=== PATIENT | female | born 1995 | race African-American/Black ===

== ENCOUNTER 2019-06-01 14:49 | Emergency (ER) | payer SELFPAY ==
[~2019-06-01] VITALS: Ht 157.5 cm; Wt 111.8 kg
[2019-06-01 14:58] VITALS: BP 138/88; Ht 157.5 cm; Wt 111.8 kg
[2019-06-01 17:01] LABS: APPEARANCE CLEAR (CLEAR); BILIRUBIN NEGATIVE (NEGATIVE); COLOR YELLOW (YELLOW); GLUCOSE NEGATIVE (NEGATIVE); KETONE NEGATIVE (NEGATIVE); NITRITE NEGATIVE (NEGATIVE); PROTEIN NEGATIVE (NEGATIVE); SPECIFIC GRAVITY 1.015 (1.005-1.020); UROBILINOGEN NORMAL (NORMAL)
[2019-06-01] MEDS ORDERED: ZPAK PO (17:06)
== END 2019-06-01 17:33 | disposition home or self-care (01) ==
LOC: D.ER 14:49
PROVIDERS: Emergency Medicine
DX: O26.90 Pregnancy related conditions, unspecified, unspecified trimester (principal); J32.9 Chronic sinusitis, unspecified; Z32.00 Encounter for pregnancy test, result unknown; R05 Cough; R11.0 Nausea; R53.1 Weakness

== ENCOUNTER 2020-01-15 09:33 | Inpatient (IN) | payer MEDICAID ==
[~2020-01-15] VITALS: Ht 157.5 cm; Wt 114.8 kg
--- NOTE | ~2020-01-15 | OP ---
PATIENT NAME: MADINA PATINO MEDICAL RECORD: [id number] :93 LOCATION:[facility]73 ADMISSION DATE:01/15/20 SURGEON: KEY WHITE DO DATE OF OPERATION: 01/15/2020 PREOPERATIVE DIAGNOSIS: Scheduled repeat . POSTOPERATIVE DIAGNOSIS: Scheduled repeat . PRIMARY SURGEON: Key White DO ANESTHESIA: Spinal. PROCEDURE: Repeat low transverse section via Pfannenstiel incision. FINDINGS: Female infant, weight 6 pounds 12 ounces, Apgars 9 and 9, delivered at 1406. Meconium stained amniotic fluid. Bladder adhesed to the mid anterior uterus. Normal appearing bilateral fallopian tubes and bilateral ovaries. SPECIMENS: Placenta and cord blood. ESTIMATED BLOOD LOSS: 900 cc. IV FLUIDS: 2 liters. URINE OUTPUT: 75 cc of concentrated urine. COMPLICATIONS: None. CONDITION: Stable. PROCEDURE: The risks, benefits, alternatives and indications of the procedure were discussed with the patient. She voiced understanding of the procedure and signed a consent. DESCRIPTION OF PROCEDURE: She was taken to the OR where spinal anesthesia was administered and found to be adequate. She was placed in the dorsal supine position with a leftward tilt. She was prepped and draped in the normal sterile fashion. A Pfannenstiel skin incision was made with a scalpel and carried down to the underlying layer of the fascia with the Bovie. The fascia was incised with the midline and extended laterally. The inferior aspect of the fascial incision was grasped with Monae clamps and the rectus muscles dissected off sharply. Attention was then turned to the superior aspect of the fascial incision and the rectus muscle was dissected off in a similar fashion. The rectus muscle was in the midline down to the level of the peritoneum. The peritoneum was identified and noted to be free of adherent bowel and entered bluntly. The peritoneum was further with gentle traction. The bladder was noted to be adhesed to the mid anterior uterus and so a bladder flap was created with Metzenbaum scissors and pickups. The bladder blade was inserted and the uterus was incised in a transverse fashion in the lower uterine segment. The incision was extended with cephalad caudad traction. The infant's head was brought to the incision and the delivered without difficulty. Mouth and nose were suctioned. Cord was clamped and cut. The was handed off to awaiting pediatric staff. The placenta was manually removed. The uterus was exteriorized and a moist lap was used to assure complete removal of placenta OPERATIVE REPORT [id number] MADINA PATINO. The hysterotomy was closed with 0 Vicryl in a running-locked fashion with good hemostasis. Uterus, tubes, and ovaries were noted to be normal. The posterior cul-de-sac was irrigated with warm sterile water and the uterus, tubes and ovaries were returned back to the abdominal cavity and moist laparotomy sponges to assure complete removal of blood clots and fluid from the abdominal cavity. The hysterotomy was reinspected and noted to be hemostatic. The rectus muscle was closed with 2-0 Monocryl in a running fashion with good hemostasis. The fascial incision was closed with 0 Vicryl in a running fashion with good hemostasis. The subcutaneous fat was closed with 2-0 plain in a running fashion with good hemostasis. The skin was closed with 3-0 Monocryl and Dermabond covering. All needle, lap, sponge, and instrument counts were correct times 2. The patient tolerated the procedure well and she was taken to recovery room in stable condition. TRANSINT:[id number] Voice Confirmation ID: [id number] DOCUMENT ID: [id number] KEY WHITE DO CC: [id number] DICTATION DATE: 01/15/201506 HOSPICE PLAN ADMINISTRATOR: 01/16/20 0029 [facility] [address] [id number]
[~2020-01-15 09:33] MED LIST: ZPAK PO
[2020-01-15 10:07] VITALS: BP 126/64; Ht 157.5 cm; Wt 114.8 kg
[2020-01-15 10:53] LABS: HEMATOCRIT 31.7 % (36.0-48.0); HEMOGLOBIN 10.6 g/dL (12-16); MCH 28.5 pg (26.0-34.0); MCHC 33.4 g/dL (31.0-37.0); MCV 85.2 fL (80.0-100.0); MEAN PLATELET VOLUME 9.9 fL (7.4-10.4); RBC 3.72 10x6/uL (4.00-5.40); RDW 15.9 % (11.5-14.5); WBC 6.9 10x3/uL (4.8-10.8)
--- NOTE | 2020-01-15 15:14 | NUR ---
BABY GIRL @ 1401 PLACENTA @ 140
--- NOTE | 2020-01-15 15:19 | NUR ---
PALPATED FUNDUS FIRM AND MIDLINE
[2020-01-15 15:33] VITALS: BP 133/60
--- NOTE | 2020-01-15 15:33 | NUR ---
REC'D BACK TO ROOM 1273 FROM PACU. AA&OX3. DENIES PAIN AT THIS TIME. VSS. FUNDUS FIRM, MIDLINE AND U2 WITH MODERATE AMT RUBRA LOCHIA, NO CLOTS NOTED. DRSG TO LOWER TRANSVERSE ABD INCISION CLEAN, DRY, AND INTACT, NO DRAINAGE NOTED. PERICARE DONE, TOWELS AND CHUX CHANGED. PERIPADS PLACED. 80 MLS CONCENTRATED MICHAEL COLORED URINE NOTED IN VALENZUELA AND EMPTIED. BREATH SOUNDS CLEAR AND EQUAL BILATERALLY. BOWELS SOUNDS PRESENT AND HYPOACTIVE X4 QUADRANTS. SCD'S TO BLE. R WRIST PIV INFUSING WITHOUT DIFFICULTY, NO S/S OF INFILTRATION NOTED. UPDATED ON STATUS. DENIES NAUSEA. ICE CHIPS PROVIDED. ICE PACK PLACED PER ORDER AND PT REQUEST. BED IN LOW POSITION WITH SRUP X2. CALL LIGHT AND PHONE WITHIN REACH. WILL CONTINUE TO MONITOR.
--- NOTE | 2020-01-15 15:53 | NUR ---
TO PT'S ROOM, MORPHINE BUCKLE SORTER SET UP AND EXPLAINED TO PT. PT PROVIDED WITH BUCKLE SORTER BUTTON. PT ABLE TO MOVE AND FEEL BOTH LEGS, PT EXCITED, STATES "I CAN MOVE MY LEGS!". VALENZUELA CATH CONTINUES TO DRAIN DARK YELLOW URINE. FUNDUS FIRM, U/1, SMALL RUBRA LOCHIA, NO CLOTS EXPELLED. ABDOMEN CONTINUES TO PALPATE SOFT, PT DENIES NAUSEA/SOB/OR DIFFICULTY BREATHING. PT SERVED LARGE GLASS OF ICE WATER. SRUP X2, CALL LIGHT AND PHONE WITHIN REACH. SEE EMAR FOR ALL MEDS ADM BY THIS RN.
--- NOTE | 2020-01-15 17:15 | NUR ---
DIETARY SERVES CLEAR LIQUID DIET, PT DENIES ALL NEEDS AT THIS TIME. CONTINUES TO DENY SOB, NAUSEA, OR DIFFICULTY BREATHING. SRUP X2, CL/PHONE WITHIN REACH.
--- NOTE | 2020-01-15 18:34 | NUR ---
VSS. FUNDUS FIRM, MIDLINE AND U1 WITH MODERATE AMT RUBRA LOCHIA, SMALL QUARTER SIZED CLOT EXPRESSED WITH MASSAGE. PERIPADS, TOWELS, AND CHUX CHANGED. 45 MLS MICHAEL COLORED URINE NOTED TO UROMETER, WILL NOTIFY MD. DENIES PAIN. LOCAL ARE[employer] SYSTEMS ADMINSTRATOR INFUSING. ICE WATER PROVIDED AND ENCOURAGED PO FLUID INTAKE. BED IN LOW POSITION WITH SRUP X2. CALL LIGHT AND PHONE WITHIN REACH. WILL CONTINUE TO MONITOR.
--- NOTE | 2020-01-15 18:41 | NUR ---
DR. RIVERA PAGED TO REPORT OUTPUT.
--- NOTE | 2020-01-15 18:44 | NUR ---
CALL BACK TO UNIT REC'D FROM DR. RIVERA. URINE OUTPUT REPORTED. ORDERS REC'D TO CONTINUE TO MONITOR AND REPORT URINE OUTPUT LESS THAN 25 MLS/HR TO .
--- NOTE | 2020-01-15 19:07 | NUR ---
BEDSIDE REPORT COMPLETED AT THIS TIME
[2020-01-15 19:12] VITALS: BP 125/61
--- NOTE | 2020-01-15 19:12 | NUR ---
PATIENT SITTING UP IN BED HOLDING , SIGNIFICANT OTHER AT BEDSIDE. PT DENIES PAIN, VALENZUELA CATHETER DRAINING TO GRAVITY-10ML MICHAEL URINE NOTED IN CHAMBER. SHIFT ASSESSMENT COMPLETED, SEE FLOWSHEET. INCENTIVE SPIROMETER AND TEACHING PROVIDED. BED REMAINS LOCKED IN LOW POSITION, SIDERAILS UPX2, CALL ARGUELLO AND TRAY TABLE IN REACH. WILL CONTINUE TO MONITOR.
--- NOTE | 2020-01-15 19:12 | NUR ---
PERICARE PERFORMED, CLEAN PAD PLACED. BLEEDING SMALL RUBRA, FUNDUS FIRM ML/U-1.
--- NOTE | 2020-01-15 20:30 | NUR ---
BLANKETS PROVIDED PER PTS REQUEST. NO FURTHER NEEDS IDENTIFIED
--- NOTE | 2020-01-15 21:08 | NUR ---
TORADOL 30MG SLOW IVP ADMINISTERED AT THIS TIME PER MD ORDERS
--- NOTE | 2020-01-15 21:12 | NUR ---
VALENZUELA CATHETER UROMETER EMPTIED OF 30ML MICHAEL URINE. PATIENT HOLDING TO CHANGE HER DIAPER. SIGNFICANT OTHER REMAINS AT BEDSIDE FOR SUPPORT AND ASSISTANCE. NO FURTHER NEEDS IDENTIFIED. WILL CONTINUE TO MONITOR.
--- NOTE | 2020-01-15 22:15 | NUR ---
PERICARE PERFORMED, CLEAN PADS PLACED. SMALL RUBRA WITH QUARTER SIZED CLOT NOTED. PT DENIES NEEDS AT THIS TIME. BED REMAINS LOCKED IN LOW POSITION, SIDERAILS UPX2, CALL ARGUELLO AND TRAY TABLE IN REACH.
--- NOTE | 2020-01-15 23:13 | NUR ---
INFANT TO NURSERY VIA OPEN CRIB PER PARENTS REQUEST. PATIENT DENIES NEEDS AT THIS TIME, STATES THAT SHE IS GOING TO GO TO SLEEP. PTS SIGNIFICANT OTHER IS LEAVING TO GO HOME BECAUSE THE BED IS SO UNCOMFORTABLE HERE.
--- NOTE | 2020-01-16 00:12 | NUR ---
DR RIVERA CALLED AND GIVEN UPDATE ON 10 ML MICHAEL URINE OUTPUT, NEW ORDERS NOTED FOR 500ML IV BOLUS OF NS.
[2020-01-16 00:20] VITALS: BP 118/59
--- NOTE | 2020-01-16 00:20 | NUR ---
NORMAL SALINE IV BOLUS STARTED AT THIS TIME PER MD ORDERS. PERICARE PERFORMED WITH 5 DIME SIZED CLOTS EXPRESSED. CLEAN PADS PLACED. PT USING PHYSICAL CHEMIST FOR PAIN CONTROL AT THIS TIME. NO FURTHER NEEDS IDENTIFIED. WILL CONTINUE TO MONITOR
--- NOTE | 2020-01-16 03:05 | NUR ---
PT SITTING UP IN BED HOLDING INFANT, PERICARE PERFORMED, SMALL RUBRA WITH NO CLOTS, CLEAN PADS PLACED. VALENZUELA CATHETER UROMETER EPMTIED OF 40ML DARK MICHAEL URINE. PT ENCOURAGED TO DRINK WATER. NO NEEDS IDENTTIFIED AT THIS TIME. WILL CONTINUE TO MONITOR
--- NOTE | 2020-01-16 04:15 | NUR ---
PATIENT CONTINUES TO BREASTFEED, DENIES NEEDS. VALENZUELA CATHETER NOTED TO HAVE 22ML MICHAEL URINE.
--- NOTE | 2020-01-16 05:15 | NUR ---
PATIENT CONTINUES TO BREASTFEED, PT TEARFUL. PATIENT STATES THAT THE BABY IS JUST USING HER A PACIFIER. TAKEN, AND WRAPPED IN BLANKET AND GIVEN A PACIFIER. NURSERY NURSE TO ROOM TO TAKE INFANT BACK TO NURSERY. URINE OUTPUT NOTED TO BE 20ML DARK MICHAEL URINE IN UROMETER. FUNDUS FIRM,U-2, NO BLADDER DISTENTION NOTED. PT HAS NO COMPLAINT OF FEELING LIKE SHE HAS TO URINATE. WILL CALL DR RIVERA.
[2020-01-16 06:09] LABS: RAPID PLASMA REAGIN Non Reactive (Non Reactive)
--- NOTE | 2020-01-16 06:15 | NUR ---
PATIENT SLEEPING, RESPIRATIONS EVEN AND NON LABORED. VALENZUELA CATHETER UROMETER EMPTIED OF 30ML DARK MICHAEL URINE. WILL CONTINUE TO MONITOR
[2020-01-16 06:25] LABS: BASOPHILS 0.2 % (0-2); EOSINOPHILS 1.3 % (0-7); HEMATOCRIT 27.3 % (36.0-48.0); HEMOGLOBIN 8.7 g/dL (12-16); IMMATURE GRANULOCYTES 0.3 % (0-5); LYMPHOCYTES 14.2 % (15-50); MCH 27.8 pg (26.0-34.0); MCHC 31.9 g/dL (31.0-37.0); MEAN PLATELET VOLUME 9.7 fL (7.4-10.4); MONOCYTES 9.5 % (2-11); NEUTROPHILS 74.5 % (40-80); RBC 3.13 10x6/uL (4.00-5.40); RDW 16.3 % (11.5-14.5)
[2020-01-16 06:27] LABS: MCV 87.2 fL (80.0-100.0); PLATELET COUNT 305 10x3/uL (130-400); WBC 9.5 10x3/uL (4.8-10.8)
--- NOTE | 2020-01-16 07:35 | NUR ---
NS BOLUS INIATED TO RIGHT WRIST PIV SITE, SITE BENIGN. AM ASSESSMENT COMPLETED, VSS, AFEBRILE, SKIN WARM AND DRY, COLOR WNL, LUNGS CTAB, HEART RRR, ABD SOFT, LOW TRANSVERSE ABD DRESSING WITH OLD SANGUINOUS DRAINAGE NOTED EXTENDING FROM MID-DRESSING TO LEFT SIDE, FUNDUS FIRM AT U/2 AND MIDLINE, VALENZUELA CATHETER IN PLACE DRAINING PINK-TINGED URINE TO TUBING AND 100ML IN PAST TWO HOURS OUTPUT. ASH FREELY, NEGATIVE AMY'S SIGN B. SCD'S ON AND FUNCTIONING, DENIES NEEDS OR CONCERNS. WILL MONITOR FOR CHANGE INCONDITION.
[2020-01-16 07:39] VITALS: BP 127/63
--- NOTE | 2020-01-16 08:05 | NUR ---
DR RIVERA PHONES UNIT, REVIEWED PT REQUEST FOR GETTING UP OOB, ORDERS RECEIVED TO NORMALIZE PT, DC VALENZUELA, CONVERT PIV TO SALINE LOCK, DC COSTUME DIRECTOR. RELAYED INFORMATION TO PT; PT STATES UNDERSTANDING.
--- NOTE | 2020-01-16 08:45 | NUR ---
morphine resin mixer discontinued and piv converted to saline lock after bolus completed. saline lock cdi wtihout s/sx infection or infiltration. tolerating po fluids regular tray provided upon request; sitting up in bed with in arms, bonding well. scds in place, no new drainage to abd dressing. discussed plan to discontinue gu after meal. states understanding of all information relayed. will continue to monitor.
--- NOTE | 2020-01-16 09:35 | NUR ---
gu catheter discontinued after balloon deflation without difficulty, emptied 125 ml urine from gravity drainage. tolerates procedure well. pt sitting up in bed nad noted. tolerating po well. will monitor.
--- NOTE | 2020-01-16 10:32 | NUR ---
PT ASSISTED OOB TO BR TO VOID, VOIDED 100ML YELLOW URINE, QUARTER-SIZED CLOT NOTED IN SPECIPAN WELL. PT PEFORMED PERICARE, AMBULATORY IN ROOM, TOLERATES ACTIVITY WELL. PT GIVEN IBUPROFEN FOR C/O INCISIONAL PAIN RATED 1 OUT OF 10; STATES "I FEEL REALLY WELL AND I DON'T WANT TO START HURTING". IN ARMS, DISCUSSED LATCHING TECHNIQUES, USE OF NIPPLE SHIELD, AND LANOLIN CREAM TO AREOLAS. PT STATES UNDERSTANDING OF ALL INFORMATION PROVIDED.
[2020-01-16 11:44] VITALS: BP 126/58
--- NOTE | 2020-01-16 11:47 | NUR ---
ROUNDS COMPLETED, VSS, AFEBRILE, INFANT IN ARMS, FOB PRESENT AT PT SIDE AND ALSO ATTENTIVE TO INFANT. NAD NOTED, DENIES NEEDS OR CONCERNS, ENCOURAGED PO INTAKE, DENIES FLATUS. CONTINUE TO MONITOR.
--- NOTE | 2020-01-16 12:25 | NUR ---
LUNCH TRAY PROVIDED, SIGNIFICANT OTHER IN ROOM, INFANT IN PT ARMS, NAD NOTED, WILL CONTINUE TO MONITOR.
--- NOTE | 2020-01-16 13:32 | NUR ---
ROUNDS COMPLETED, SITTING UPRIGHT ON SIDE OF BED, REPORTS BEING AMBULATORY IN ROOM, VOIDED 200 ML TO SPECIPAN. SMILING, DENIES PAIN, CALL LIGHT IN EASY REACH OF PT.
--- NOTE | 2020-01-16 14:10 | NUR ---
rounds completed, pt oob to br, voided 200 ml and had large bm. denies pain or other complaints, cup of ice water provided upon request. call light in easy reach, pt sitting on couch with in arms. smiling. will continue to monitor.
[2020-01-16 15:23] VITALS: BP 136/60
--- NOTE | 2020-01-16 15:31 | NUR ---
ROUNDS COMPLETED, INFANT IN PT ARMS, RESP EVEN AND UNLABORED, STATES WILL SHOWER AND WALK IN HALLS AFTER SIGNIFICANT OTHER RETURNS TO ROOM. ENCOURAGED PT TO USE C/L TO NOTIFY THIS RN SO LINENS CAN BE CHANGED. PT STATES UNDERSTANDING. WILL CONTINUE TO MONITOR.
--- NOTE | 2020-01-16 16:47 | NUR ---
pt showered, linens changed, ambulatory in halls. pt now with c/o pain rated 2/10 requesting prn pain med and "something for indigestion"; prn percocet 5/325 mg tab and simethicone administered per md orders. reviewed side effects, plan of care, and encouraged rest as able to do so, pt states understanding. will continue to monitor.
--- NOTE | 2020-01-16 17:33 | NUR ---
pain reassessment completed, pt reports pain 1 out of 10 on numeric pain scale, relays improved indigestion and is eating dinner at this time. will continue to monitor.
--- NOTE | 2020-01-16 18:15 | NUR ---
ROUNDS COMPLETED, PT SMILING, SIGNIFICANT OTHER AT BS, REPORTS AMBULATION IN HALLS "I GOT TO SEE A WINDOW AND IT WAS SO PRETTY OUTSIDE." NAD NOTED, RESP EVEN AND UNLABORED, RELATES NO CHANGES IN CONDITION AND NO CONCERNS AT THIS TIME, CALL LIGHT IN EASY REACH, WILL CONTINUE TO MONITOR.
--- NOTE | 2020-01-16 19:02 | NUR ---
BEDSIDE SHIFT REPORT COMPLETED AT THIS TIME WITH LISS PERALES TO ASSUME PATIENT CARE.
--- NOTE | 2020-01-16 19:34 | NUR ---
ADMINISTERED MOTRIN 600MG PO PER MD ORDERS AND PATIENT REQUEST FOR 2/10 PAIN.
[2020-01-16 19:35] VITALS: BP 137/64
--- NOTE | 2020-01-16 19:35 | NUR ---
SHIFT ASSESSMENT COMPLETED AT THIS TIME, SEE FLOWSHEET.
--- NOTE | 2020-01-16 20:59 | NUR ---
PATIENT AMBULATING IN THE HALLWAY, PROVIDED ICE PER REQUEST, NO FURTHER NEEDS IDENTIFIED. WILL CONTINUE TO MONITOR
--- NOTE | 2020-01-16 22:00 | NUR ---
PATIENT SLEEPING, RESPIRATIONS EVEN AND NON LABORED. NO NEEDS IDENTIFIED. WILL CONTINUE TO MONITOR
--- NOTE | 2020-01-17 00:30 | NUR ---
PATIENT SLEEPING, EASILY AROUSED TO VERBAL. DENIES NEEDS AT THIS TIME. BED REMAINS LOCKED IN LOW POSITION. SIDE RAILS UPX2, CALL ARGUELLO IN REACH. SIGNIFICANT OTHER REMAINS AT BEDSIDE FOR SUPPORT
--- NOTE | 2020-01-17 02:59 | NUR ---
PATIENT SLEEPING WITH EVEN RESPIRATIONS, NO DISTRESS NOTED. WILL CONTINUE TO MONITOR
--- NOTE | 2020-01-17 05:09 | NUR ---
PATIENT SLEEPING, EASILY AROUSED TO VERBAL. DENIES NEED FOR PAIN MEDICATION ENCOURAGED TO CALL WITH ANY NEEDS.
[2020-01-17 07:11] VITALS: BP 126/68
--- NOTE | 2020-01-17 07:11 | NUR ---
PT STATES HAD BM YESTERDAY. DENIES PASSING GAS TODAY.
--- NOTE | 2020-01-17 07:11 | NUR ---
RECEIVED PT LYING TO RIGHT SIDE IN BED. WAKES UPON ENTERING ROOM. VSS. HRRR WITHOUT AUDIBLE MURMUR. BBS CLEAR. BS X 4. ABDOMEN SOFT/NON-DISTENDED. FUNDUS FIRM AT U/1. RUBRA LOCHIA SMALL AMT. PT STATES HAS PASSED SOME CLOTS. PT INSTRUCTED TO NOTIFY NURSE IF SOAKING A PAD IN ONE HOUR AND/OR PASSING CLOT THE SIZE OF AN EGG OR BIGGER. PT VERBALIZES UNDERSTANDING. ABDOMINAL INCISION WITH DERMABOND. NO REDNESS, SWELLING OR DRAINAGE NOTED. NO CLOTS NOTED ON PERIPAD. NEG HOMANS' SIGN. PPP. NO EDEMA NOTED TO BLE. PT C/O INCISIONAL PAIN OF "2" ON 0-10 PAIN SCALE. ALSO C/O BACK PAIN OF "2" ON 0-10 PAIN SCALE. SR UP X 2. CALL LIGHT IN REACH.
--- NOTE | 2020-01-17 07:22 | NUR ---
PT GIVEN PERCOCET 5/325 AND MOTRIN 600 MG PO PER PT REQUEST FOR C/O PAIN. PT INSTRUCTED ON MEDS. VERBALIZES UNDERTANDING. PT ALSO PROVIDED SPRITE PER REQUEST.
--- NOTE | 2020-01-17 08:30 | NUR ---
PT SITTING UP IN BED. CARING FOR INFANT. DENIES C/O OR NEEDS.
--- NOTE | 2020-01-17 10:20 | NUR ---
PT SITTING UP IN BED. CARING FOR INFANT. DENIES PAIN OR NEEDS. SO WITH PT.
--- NOTE | 2020-01-17 10:55 | NUR ---
DR RIVERA VISITS WITH PT.
--- NOTE | 2020-01-17 11:24 | NUR ---
DR RIVERA CALLS. T/O ORDER RECEIVED TO DC PT HOME.
--- NOTE | 2020-01-17 13:00 | NUR ---
SL DC'D WITH CATHELON INTACT. PRESSURE BANDAGE TO SITE. PT JEANNE WELL. PT INFORMS THIS NURSE THAT PT IS ALLERGIC TO PERUSSIS VACCINE. STATES HAD CHILD AND HAD SEIZURES. WILL DOCUMENT ALLERGY.
[2020-01-17] MEDS ORDERED: IBUPROFEN600 MG PO (13:26)
[2020-01-17] MEDS ORDERED: PERCOCET 5-3251 TAB PO (13:26)
--- NOTE | 2020-01-17 14:41 | NUR ---
PT SITTING UP IN BED. CARING FOR INFANT. DENIES C/O OR NEEDS.
--- NOTE | 2020-01-17 16:00 | NUR ---
DISCHARGE INSTRUCTIONS GIVEN TO PT. PT VERBALIZES UNDERSTANDING OF ALL INSTRUCTIONS. COPIES GIVEN TO PT. PT GIVEN RX FOR NORCO 5/325 AND MOTRIN. PT PREPARES FOR DISCHARGE.
--- NOTE | 2020-01-17 16:30 | NUR ---
PT READY FOR DISCHARGE. DISCHARGED IN STABLE CONDITION VIA AMBULATORY (PER PT REQUEST; REFUSED WHEELCHAIR) WITH INFANT TO PRIVATE VEHICLE. JEANNE WELL.
== END 2020-01-17 16:30 | disposition home or self-care (01) | DRG 788 ==
LOC: D.LD 09:33 → D.SDCHOLD 12:00 → D.LD 01-17 16:30
PROVIDERS: ADMIT Student in an Organized Health Care Education/Training Program; ATTEND Student in an Organized Health Care Education/Training Program
PROC: 10D00Z1 Extraction of Products of Conception, Low, Open Approach (ICD-10-PCS; principal; 2020-01-15 12:00)
DX: O34.219 Maternal care for unspecified type scar from previous cesarean delivery (principal); Z3A.39 39 weeks gestation of pregnancy; Z37.0 Single live birth; O77.0 Labor and delivery complicated by meconium in amniotic fluid; O99.89 Other specified diseases and conditions complicating pregnancy, childbirth and the puerperium; N73.6 Female pelvic peritoneal adhesions (postinfective)

== ENCOUNTER 2020-01-19 16:35 | Emergency (ER) | payer MEDICAID ==
[~2020-01-19] VITALS: Ht 157.5 cm; Wt 118.2 kg
[~2020-01-19 16:35] MED LIST changes: +IBUPROFEN600 MG PO; +PERCOCET 5-3251 TAB PO
[2020-01-19 17:19] VITALS: Ht 157.5 cm; Wt 118.2 kg
[2020-01-19 17:27] LABS: BASOPHILS 0.3 % (0-2); EOSINOPHILS 3.5 % (0-7); HEMATOCRIT 26.7 % (36.0-48.0); HEMOGLOBIN 8.4 g/dL (12-16); IMMATURE GRANULOCYTES 0.4 % (0-5); LYMPHOCYTES 29.8 % (15-50); MCH 27.4 pg (26.0-34.0); MCHC 31.5 g/dL (31.0-37.0); MEAN PLATELET VOLUME 9.1 fL (7.4-10.4); MONOCYTES 8.3 % (2-11); NEUTROPHILS 57.7 % (40-80); PLATELET COUNT 348 10x3/uL (130-400); RBC 3.07 10x6/uL (4.00-5.40); RDW 16.2 % (11.5-14.5); WBC 6.9 10x3/uL (4.8-10.8)
[2020-01-19 17:36] LABS: CALC OSMOLALITY 272 mosm/kg (275-300); CALCIUM 8.3 mg/dL (8.5-10.1); CARBON DIOXIDE 23.9 mmol/L (21.0-32.0); CHLORIDE - SERUM 106 mmol/L (98-107); CREATININE - SERUM 0.9 mg/dL (0.6-1.3); GLUCOSE 81 mg/dL (74-106); POTASSIUM - SERUM 3.4 mmol/L (3.5-5.1); SODIUM 138 mmol/L (136-145); UREA NITROGEN 6 mg/dL (7-18); eGFR NON AFRICAN AMERICAN 80 mL/min (90-120)
[2020-01-19 17:41] LABS: ALBUMIN 2.5 g/dL (3.4-5.0); ALKALINE PHOSPHATASE 142 U/L (30-120); ALT (SGPT) 14 U/L (10-68)
[2020-01-19 18:40] LABS: BILIRUBIN NEGATIVE (NEGATIVE); GLUCOSE NEGATIVE (NEGATIVE); KETONE NEGATIVE (NEGATIVE); NITRITE NEGATIVE (NEGATIVE); UROBILINOGEN NORMAL (NORMAL)
[2020-01-19 18:42] LABS: BACTERIA FEW /hpf (NEGATIVE); EPITHELIAL CELLS 0-5 /hpf (0-5); WHITE CELLS - URINE 0-5 /hpf (NEGATIVE)
[2020-01-19 19:30] VITALS: BP 137/89
== END 2020-01-19 19:30 | disposition home or self-care (01) ==
LOC: D.ER 16:35
PROVIDERS: Family Medicine
DX: O90.81 Anemia of the puerperium (principal); O87.8 Other venous complications in the puerperium; I87.8 Other specified disorders of veins; K21.9 Gastro-esophageal reflux disease without esophagitis; Q05.9 Spina bifida, unspecified; M79.89 Other specified soft tissue disorders

== ENCOUNTER → 2021-01-06 10:35 | Outpatient (CLI) | payer OTHER ==
[2020-01-19 17:19] VITALS: BMI 47.7
[~2021-01-06 10:35] MED LIST changes: +MACROBID100 MG PO
== END | disposition home or self-care (01) ==
LOC: D.US 10:30
PROVIDERS: ATTEND Student in an Organized Health Care Education/Training Program
DX: N63.21 Unspecified lump in the left breast, upper outer quadrant (principal)